=== PATIENT | male | born 1965 | race Caucasian/White ===

== ENCOUNTER 2016-11-29 22:07 | Emergency (ER) | payer MEDICAID, OTHER ==
[~2016-11-29] VITALS: Ht 182.9 cm; Wt 98.8 kg
[2016-11-29 22:10] VITALS: BP 143/81
[2016-11-29] MEDS ORDERED: TOBRAMYCIN OPHTH 5ML EACHEYE ONE (23:00)
== END 2016-11-29 23:40 | disposition home or self-care (01) ==
LOC: ED 22:59
DX: H10.023 Other mucopurulent conjunctivitis, bilateral (principal)
CPT/HCPCS: 99283

== ENCOUNTER 2020-02-07 19:51 | Emergency (ER) | payer MEDICAID, OTHER ==
[~2020-02-07] VITALS: Ht 180.3 cm; Wt 109.0 kg
[2020-02-07 19:54] VITALS: BP 149/107
--- NOTE | 2020-02-07 20:50 | NUR ---
pt d/c with d/c summary and scripts. all questions answered. controlled substance sheet signed and placed with pt chart. pt educated on need for f/u care and provided a dental referral sheet. pt denies any other needs pertaining to this visit and ambulates to registration desk with steady gait for d/c home.
== END 2020-02-07 21:06 | disposition home or self-care (01) ==
LOC: ED 20:55
DX: K04.7 Periapical abscess without sinus (principal)
CPT/HCPCS: 99283

== ENCOUNTER 2021-06-01 04:24 | Emergency (ER) | payer MEDICAID | END 2021-06-01 04:47 | LOC: ED 04:41 | DX: Z53.21 Procedure and treatment not carried out due to patient leaving prior to being seen by health care provider (principal) ==